=== PATIENT | female | born 1970 | race Asian ===

== ENCOUNTER 2019-07-18 20:22 | Emergency (ER) | payer SELFPAY ==
[~2019-07-18] VITALS: Ht 162.6 cm; Wt 101.4 kg
[2019-07-18] MEDS ORDERED: METF500S7 PO (20:33)
[2019-07-18] MEDS ORDERED: NIFE20CA PO (20:33)
[2019-07-18] MEDS ORDERED: LISI-622 PO (20:33)
[2019-07-18] MEDS ORDERED: SIMV10TA6 PO (20:33)
[2019-07-19 00:17] VITALS: BP 159/100
== END 2019-07-19 | disposition left against medical advice (07) ==
LOC: EMS 20:22
DX: R42 Dizziness and giddiness (principal); Z53.21 Procedure and treatment not carried out due to patient leaving prior to being seen by health care provider

== ENCOUNTER 2022-12-24 12:31 | Emergency (ER) | payer MEDICAID ==
[~2022-12-24] VITALS: Ht 162.6 cm; Wt 103.2 kg
[~2022-12-24 12:31] MED LIST: LISI5TAB21 PO; METF500S9 PO; NIFE20CA PO; SIMV10TA97 PO
[2022-12-24] MEDS ORDERED: GLIP5TAB11 PO (12:40)
[2022-12-24] MEDS ORDERED: NIFE-40 PO (12:40)
[2022-12-24] MEDS ORDERED: LISI40TA9 PO (12:40)
[2022-12-24] MEDS ORDERED: METF-446 PO (12:40)
[2022-12-24] MEDS ORDERED: FINE10TA PO (12:40)
[2022-12-24] MEDS ORDERED: DULA3PEN SQ (12:40)
[2022-12-24] MEDS ORDERED: ASPIRIN 81 MG CHEWABLE TABLET PO ONE (13:30)
[2022-12-24 13:53] LABS: BASOPHILS % (AUTO) 0.7 % (0.0-2.0); EOSINOPHILS % (AUTO) 2.5 % (1.0-6.0); HEMATOCRIT 40.3 % (36-46); HEMOGLOBIN 13.5 g/dL (12.0-16.0); LYMPHOCYTES # (AUTO) 1.5 K/uL (1.0-4.8); LYMPHOCYTES % (AUTO) 23.8 % (22.0-44.0); MEAN CORPUSCULAR HEMOGLOBIN 30.4 pg (26.0-34.0); MEAN CORPUSCULAR HGB CONC 33.6 G/dL (31.0-37.0); MEAN CORPUSCULAR VOLUME 90 fL (80-100); MONOCYTES # (AUTO) 0.3 K/uL (0.1-1.0); MONOCYTES % (AUTO) 4.9 % (2.0-9.0); NEUTROPHILS # (AUTO) 4.4 K/uL (1.8-7.7); NEUTROPHILS % (AUTO) 68.1 % (40.0-70.0); PLATELET COUNT (AUTO) 352 K/uL (150-450); RED BLOOD CELL COUNT(AUTO) 4.45 MIL/uL (4.00-5.20); RED CELL DISTRIBUTION WIDTH 13.4 % (11.5-14.5)
[2022-12-24 13:56] LABS: ANION GAP 7 mmol/L (8-16); CALCIUM, TOTAL 9.1 mg/dL (8.8-10.5); CARBON DIOXIDE 27 mmol/L (22-29); CHLORIDE 103 mmol/L (98-107); CREATININE 0.82 mg/dL (0.60-1.30); GLOMERULAR FILTR. RATE CALC > 60 mL/min (>60); GLUCOSE,RANDOM 147 mg/dL (70-110); POTASSIUM 4.1 mmol/L (3.5-5.1); SODIUM SERUM 137 mmol/L (136-145); UREA NITROGEN, BLOOD 26 mg/dL (7-18)
[2022-12-24 14:03] LABS: B-TYPE NATRIURETIC PEPTIDE 10 pg/mL (0-100)
[2022-12-24 14:28] LABS: ALANINE AMINOTRANSFERASE 16 U/L (12-78); ALBUMIN 3.7 g/dL (3.4-5.0); ALKALINE PHOSPHATASE 46 U/L (46-116); ASPARTATE AMINOTRANSFERASE 12 U/L (15-37); BILIRUBIN,TOTAL 0.2 mg/dL (0.1-1.0); CREATINE KINASE, TOTAL ONLY 93 U/L (26-192); TOTAL PROTEIN, SERUM 7.7 g/dL (6.4-8.2)
[2022-12-24 16:42] VITALS: BP 131/78
== END 2022-12-24 16:47 | disposition home or self-care (01) ==
LOC: EMS 12:34
DX: R07.89 Other chest pain (principal); E11.9 Type 2 diabetes mellitus without complications; E78.00 Pure hypercholesterolemia, unspecified; I10 Essential (primary) hypertension; F17.210 Nicotine dependence, cigarettes, uncomplicated; Z88.8 Allergy status to other drugs, medicaments and biological substances
CPT/HCPCS: 71045; 80053; 82550; 82962; 83880; 84484; 84703; 85025; 93005; 99285; 36415-L1; 36415-TC